=== PATIENT | male | born 1975 | race Caucasian/White ===

== ENCOUNTER 2016-11-30 12:52 | Emergency (ER) | payer MEDICAID ==
[2016-11-30 15:25] LABS: BASOPHILS 0.1 % (0.0-2.0); EOSINOPHILS 4.7 % (0-7); HEMATOCRIT 45.3 % (42.0-54.0); HEMOGLOBIN 15.2 g/dL (13.5-17.5); IMMATURE GRANULOCYTES 0.1 % (0-5); MCH 30.4 pg (26.0-34.0); MCHC 33.6 g/dL (31.0-37.0); MCV 90.6 fL (80.0-100.0); MEAN PLATELET VOLUME 9.2 fL (7.4-10.4); MONOCYTES 7.4 % (2-11); NEUTROPHILS 64.7 % (40-80); RDW 12.6 % (11.5-14.5); WBC 6.8 10x3/uL (4.8-10.8)
[2016-11-30 15:27] LABS: PLATELET COUNT 384 10x3/uL (130-400)
== END 2016-11-30 15:13 | disposition home or self-care (01) ==
LOC: D.ER 12:52
PROVIDERS: Physician Assistant Medical
DX: K02.9 Dental caries, unspecified (principal); K08.89 Other specified disorders of teeth and supporting structures; K05.10 Chronic gingivitis, plaque induced; F17.200 Nicotine dependence, unspecified, uncomplicated